=== PATIENT | female | born 1975 | race Caucasian/White ===

== ENCOUNTER → 2021-06-04 | Outpatient (CLI) | payer OTHER ==
[~2021-06-04] MED LIST: CELEXA40 MG PO; COLACE 100MG C100 MG PO; NEURONTIN 400400 MG PO; PRINIVIL5 MG PO; SEROQUEL50 MG PO; SUBOXONE 8 MG-1 EACH SL; TYLENOL 325MG325 MG PO; VENTOLIN HFA 66.7 GM INH
== END ==
LOC: EXRD 14:09
DX: M79.641 Pain in right hand (principal); M79.642 Pain in left hand
CPT/HCPCS: 73130